=== PATIENT | female | born 1980 | race Caucasian/White ===

== ENCOUNTER 2023-11-28 08:20 | Inpatient (IN) | payer OTHER ==
[2023-11-28] MEDS: ELECTROLYTE-148 SOLN 500 ML IV SCH (09:15)
[2023-11-28] MEDS: CITRIC ACID/SODIUM CITRATE 30 ML UNIT-DOSE CUP PO ONE (09:30)
[2023-11-28 09:38] VITALS: BMI 37.8
[2023-11-28] MEDS: ELECTROLYTE-148 SOLN 1,000 ML IV SCH (09:45)
[2023-11-28] MEDS ORDERED: morphine SULFATE/PF 1 MG/2 ML (2cc Syringe - QUVA) ONE (10:34)
[2023-11-28] MEDS ORDERED: FENTANYL CITRATE/PF 50 MCG/ML VIAL ONE (10:34)
[2023-11-28] MEDS ORDERED: OXYTOCIN 10 UNITS/ML VIAL ONE (11:35)
[2023-11-28] MEDS ORDERED: ONDANSETRON 4 MG/2 ML VIAL ONE (11:35)
[2023-11-28] MEDS ORDERED: KETOROLAC TROMETHAMINE 30 MG/1 ML VIAL ONE (11:35)
[2023-11-28] MEDS ORDERED: ceFAZolin SODIUM 1 GM VIAL ONE (11:35)
[2023-11-28] MEDS ORDERED: PHENYLEPHRINE HCL 10 MG/1 ML SINGLE DOSE VIAL ONE (11:35)
[2023-11-28] MEDS ORDERED: SENNOSIDES/DOCUSATE COMBO (SENNA PLUS) TABLET (UD) PO PRN (11:58)
[2023-11-28] MEDS ORDERED: WITCH HAZEL 50% (TUCKS) 40 PAD/JAR PAD TP PRN (11:58)
[2023-11-28] MEDS ORDERED: BENZOCAINE 28 GM HEMORRHOIDAL OINTMENT TP PRN (11:58)
[2023-11-28] MEDS ORDERED: METHYLERGONOVINE MALEATE 0.2 MG/1 ML AMP IM PRN (11:58)
[2023-11-28] MEDS ORDERED: OXYTOCIN 20 UNITS in 0.9% NS 20 UNIT/1,000 ML INFUS.BAG IV SCH (12:00)
[2023-11-28] MEDS ORDERED: ONDANSETRON 4 MG/2 ML VIAL IVPUSH PRN (12:10)
[2023-11-28 12:51] LABS: CORD BASE EXCESS -5.5 mmol/L (0-2); CORD HCO3 20.7 mmHg (20-29); CORD PCO2 42.6 mmHg (30-78); CORD pH 7.304 (7.14-7.44)
[2023-11-28 12:51] LABS: CORD HCO3 23.4 mmHg (20-29); CORD PCO2 60.9 mmHg (30-78); CORD pH 7.202 (7.14-7.44)
[2023-11-28] MEDS: SODIUM CHLORIDE 500 ML IV ONE ×2 (14:05→15:45)
[2023-11-28] MEDS ORDERED: OXYTOCIN 20 UNITS in 0.9% NS 20 UNIT/1,000 ML INFUS.BAG IV ONE (14:05)
[2023-11-28] MEDS: morphine SULFATE/PF 1 MG/2 ML (2cc Syringe - QUVA) EP ONE (14:13)
[2023-11-28] MEDS ORDERED: ACETAMINOPHEN INJECTION 100 ML IVPB ONE (14:44)
[2023-11-28] MEDS: SODIUM CHLORIDE 1,000 ML IV SCH (14:45)
[2023-11-28] MEDS: ACETAMINOPHEN 1000 MG/100 ML BAG IVPB ONE (14:45)
[2023-11-28] MEDS: CEFAZOLIN 1 GM in DEXTROSE 5%-WATER 100 ML IVPB SCH (17:47)
[2023-11-28] MEDS ORDERED: oxyCODONE HCL 5 MG TABLET PO PRN (23:58)
[2023-11-29] MEDS: IBUPROFEN 800 MG/8 ML IJ IVPB PRN (00:17)
[2023-11-29] MEDS: LEVOTHYROXINE NA 100 MCG TABLET (FP) PO SCH (06:26)
[2023-11-29 07:17] LABS: BASO % 0.4 % (0-2.0); EOS % 0.6 % (0-4.5); HEMATOCRIT 35.1 % (32.4-45.2); HEMOGLOBIN 11.8 GM/dL (10.7-15.3); LYMPH % 16.4 % (8-40); MCH 29.5 pg (25.7-33.7); MCHC 33.5 g/dl (32.0-36.0); MEAN CELL VOLUME 87.8 fl (80-96); MEAN PLT VOLUME 8.6 fl (7.5-11.1); MONO % 6.2 % (3.8-10.2); NEUT % 76.4 % (42.8-82.8); PLATELET COUNT 173 10^3/uL (134-434); RDW 24.2 % (11.6-15.6); WHITE BLOOD COUNT 9.3 K/mm3 (4.0-10.0)
[2023-11-29] MEDS: ACETAMINOPHEN 325 MG TABLET (FP) PO PRN (09:04)
[2023-11-29] MEDS ORDERED: PRENATAL VITAMINS W/ FOLIC ACID TABLET (FP) PO SCH (10:00)
[2023-11-29] MEDS: ENOXAPARIN NA (PORCINE) 40 MG/0.4 ML DISP.SYRIN SQ SCH (10:15)
[2023-11-29] MEDS: PRENATAL VITAMINS W/ FOLIC ACID TABLET (FP) PO SCH (10:15)
[2023-11-29 11:12] LABS: ANISOCYTOSIS 2+; MACROCYTOSIS 1+; OVALOCYTE 2+; TARGET CELLS 0
[2023-11-29 11:17] LABS: PLATELET ESTIMATE ADEQUATE
[2023-11-29] MEDS ORDERED: BISACODYL 10 MG SUPP.RECT RC PRN (11:58)
[2023-11-29] MEDS: IBUPROFEN 600 MG TABLET (FP) PO PRN (16:20)
[2023-11-29] MEDS: SIMETHICONE 80 MG TAB.CHEW (FP) PO PRN (19:57)
[2023-11-30] MEDS: oxyCODONE HCL 5 MG TABLET PO PRN (14:48)
[2023-11-30 22:55] VITALS: RESP 18
[2023-12-01 07:56] LABS: BASO % 0.5 % (0-2.0); EOS % 2.1 % (0-4.5); HEMATOCRIT 36.2 % (32.4-45.2); LYMPH % 23.4 % (8-40); MCH 29.3 pg (25.7-33.7); MCHC 33.2 g/dl (32.0-36.0); MEAN CELL VOLUME 88.3 fl (80-96); MEAN PLT VOLUME 8.6 fl (7.5-11.1); MONO % 6.1 % (3.8-10.2); NEUT % 67.9 % (42.8-82.8); PLATELET COUNT 217 10^3/uL (134-434); RDW 24.3 % (11.6-15.6); WHITE BLOOD COUNT 7.1 K/mm3 (4.0-10.0)
[2023-12-01 22:51] VITALS: TEMP 98.7
[2023-12-02 10:08] VITALS: BP 116/72; PULSE 74
== END 2023-12-02 19:30 | disposition home or self-care (01) | DRG 540 ==
LOC: JLDR 08:20 → J3W 15:20
PROVIDERS: ADMIT Obstetrics & Gynecology; ATTEND Obstetrics & Gynecology
PROC: 10D00Z1 Extraction of Products of Conception, Low, Open Approach (ICD-10-PCS; principal; 2023-11-28)
DX: O34.219 Maternal care for unspecified type scar from previous cesarean delivery (principal); O99.284 Endocrine, nutritional and metabolic diseases complicating childbirth; O32.1XX0 Maternal care for breech presentation, not applicable or unspecified; O24.429 Gestational diabetes mellitus in childbirth, unspecified control; O77.0 Labor and delivery complicated by meconium in amniotic fluid; Z3A.39 39 weeks gestation of pregnancy; Z37.0 Single live birth
CPT/HCPCS: 36415; 36600; 59409; 82803; 85025; 86850; 86900; 86901; 88307-TC; J0131